=== PATIENT | female | born 1950 | race Caucasian/White ===

== ENCOUNTER 2017-10-09 11:04 | Emergency (ER) | payer MEDICARE ==
[~2017-10-09] VITALS: Ht 165.1 cm; Wt 79.5 kg
[~2017-10-09 11:04] MED LIST: ACET325T14 PO; ALPR-475 PO; CEFD300C37 PO; CEPH-368; DOXY100T PO; FERR325T18 PO; GUAI600T31 PO; HYDR-3237 PO; OMEP-110 PO; OMEP20CA9 PO; SODI45SP5 NAS
[2017-10-09] MEDS ORDERED: VENOFER IV (11:18)
[2017-10-09] MEDS ORDERED: MORPHINE SULFATE 4 MG/ML, 1ML IVPush PRN (12:00)
[2017-10-09] MEDS ORDERED: ONDANSETRON 2MG/ML, 2ML IVPush ONE (12:00)
[2017-10-09] MEDS ORDERED: ONDANSETRON 2MG/ML, 2ML ONE (12:17)
[2017-10-09] MEDS ORDERED: MORPHINE SULFATE 4 MG/ML, 1ML ONE (12:17)
[2017-10-09 13:38] VITALS: BP 133/46
== END 2017-10-09 13:43 | disposition home or self-care (01) ==
LOC: ED 11:34
DX: S93.621A Sprain of tarsometatarsal ligament of right foot, initial encounter (principal); S93.521A Sprain of metatarsophalangeal joint of right great toe, initial encounter; S93.491A Sprain of other ligament of right ankle, initial encounter; F41.1 Generalized anxiety disorder; W01.0XXA Fall on same level from slipping, tripping and stumbling without subsequent striking against object, initial encounter; Y93.89 Activity, other specified; Y99.8 Other external cause status; Y92.89 Other specified places as the place of occurrence of the external cause
CPT/HCPCS: 73564; 73610; 73630; 96374; 96375; 99284; J2405

== ENCOUNTER 2020-10-23 09:40 | Emergency (ER) | payer MEDICARE ==
[~2020-10-23] VITALS: Ht 162.6 cm; Wt 81.1 kg
[~2020-10-23 09:40] MED LIST changes: -ALPR-475 PO; +ALPR0.5T7 PO; +VENOFER IV
[2020-10-23 09:47] VITALS: BP 120/72
--- NOTE | 2020-10-23 10:28 | NUR ---
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 Awaiting MD exam. Pt noted that she is [place] and does not take blood products and last oral intake was approximately 2030 last night.
[2020-10-23] MEDS ORDERED: LIDOCAINE 1%-EPI 1:100K, 20ML INFIL ONE (10:30)
[2020-10-23] MEDS ORDERED: LIDOCAINE 1%-EPI 1:100K, 20ML ONE (10:32)
--- NOTE | 2020-10-23 10:33 | NUR ---
MD exam completed and awaiting ENT MD to come see ptSteve Bone with Epi 20mL bottle brought to bedside as ordered.
--- NOTE | 2020-10-23 11:21 | NUR ---
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 Waiting for ENT. ERP states ENT in OR right now and it might be a bit. Pt aware.
--- NOTE | 2020-10-23 12:35 | NUR ---
Pt just saw ENT who wants labs drawn and then to see pt in his office as outpatient. formulation technician arriving for draw now.
[2020-10-23 13:01] LABS: BASOPHILS % (AUTO) 2 % (0-1); EOSINOPHILS % (AUTO) 1 % (1-7); LYMPHOCYTES % (AUTO) 22 % (22-44); MEAN CORPUSCULAR HEMOGLOBIN 26.5 pg (27.0-34.8); MEAN CORPUSCULAR HGB CONC 31.5 g/dL (32.4-35.8); MONOCYTES % (AUTO) 11 % (2-9); NEUTROPHILS % (AUTO) 64 % (42-75); PLATELET COUNT 215 x10^3/uL (130-400); RED BLOOD COUNT 4.19 x10^6/uL (3.82-5.3); RED CELL DISTRIBUTION WIDTH 19.8 % (9.6-15.2)
== END 2020-10-23 13:53 | disposition home or self-care (01) ==
LOC: ED 13:50
DX: R04.0 Epistaxis (principal); I10 Essential (primary) hypertension; Z88.6 Allergy status to analgesic agent; Z88.3 Allergy status to other anti-infective agents
CPT/HCPCS: 36415; 85025; 99283